=== PATIENT | female | born 1970 | race Caucasian/White ===

== ENCOUNTER → 2020-05-27 | Emergency (ER) | payer OTHER ==
[~2020-05-27] MED LIST: Ketorolac Tromethamine 30 MG/ML VIAL ONE; Nitrofurantoin Monohyd/M-Cryst 100 MG CAP ONE; Phenazopyridine HCl 97.5 MG TABLET ONE
[2020-05-27 21:07] LABS: Bilirubin Negative (Negative); Blood, Urine Negative (Negative); Clarity Slightly Cloudy (Clear); Glucose, Urine (Dipstick) Negative (Negative); Ketone, Urine Negative (Negative); Leukocyte Small (Negative); Nitrite Negative (Negative); Protein, Urine (Dipstick) Negative (Neg-Trace); Specific Gravity, Urine 1.025 (1.005-1.030)
[2020-05-27 21:14] LABS: Bacteria/HPF 1+ HPF (None Seen); RBC/HPF 0-3 HPF (0-3); Squamous Epithelial 0-3 HPF (0-3); Trichomonas/HPF 1+ HPF (None Seen); Yeast-Budding Rare HPF (None Seen); Yeast-Hyphae 1+ HPF (None Seen)
--- NOTE | 2020-05-28 09:27 | CT ---
CT ABDOMEN AND PELVIS WITHOUT CONTRAST: 05/27/[address] of the abdomen and pelvis was done without oral or IV contrast in this patient with right f lank pain. The lung bases are clear. The liver, spleen, pancreas, adrenal glands, gallbladder, kidneys, and abd ominal aorta showed no acute findings within the limitations of a noncontrast study. There is a tiny nonobstructing left renal calculus, but no calculi were appreciated in the ureters or the urinary jaspreet dder. The aorta shows no dilation. The bowel is unremarkable in appearance. No free air or free fluid was seen. CT of the pelvis shows s everal pelvic calcifications that appear to be phleboliths. None appear to be within the ureter. Ther e are no adnexal masses, free fluid, or inflammatory changes. IMPRESSION: Tiny nonobstructing calculus in the left kidney. No findings on the right side to explain right sided pain. Preliminary report discussed with Dr. Santana at 1063 on 05/27/20. POS: HOME
== END ==
LOC: BURERS 20:34
DX: N20.0 Calculus of kidney (principal); N39.0 Urinary tract infection, site not specified; M19.90 Unspecified osteoarthritis, unspecified site; M06.9 Rheumatoid arthritis, unspecified; E66.9 Obesity, unspecified; F32.9 Major depressive disorder, single episode, unspecified; F17.200 Nicotine dependence, unspecified, uncomplicated; M79.7 Fibromyalgia; Z79.899 Other long term (current) drug therapy
CPT/HCPCS: 74176; 81003; 81015; 87086; 96372; J1885

== ENCOUNTER 2020-07-01 11:55 | Emergency (ER) | payer BC, OTHER ==
[~2020-07-01 11:55] MED LIST changes: +Iopamidol 370 76% 100 ML VIAL ONE; -Ketorolac Tromethamine 30 MG/ML VIAL ONE; -Nitrofurantoin Monohyd/M-Cryst 100 MG CAP ONE; -Phenazopyridine HCl 97.5 MG TABLET ONE
[2020-07-01 12:11] LABS: #Basophils 0.1 thou/uL (0.0-0.2); #Eosinphils 0.3 thou/uL (0.0-0.7); #Lymphocytes 1.4 thou/uL (1.20-3.40); #Monocytes 0.3 thou/uL (0.11-0.59); #Neutrophils 3.2 thou/uL (1.40-6.50); %Basophils 1.2 % (0.0-1.0); %Lymphocytes 27.3 % (21.0-51.0); %Neutrophils 59.6 % (42.0-75.0); Hemoglobin 11.8 g/dL (12.0-16.0); Mean Corpuscular HGB CONC 30.9 g/dL (32.0-36.0); Mean Corpuscular Hemoglobin 28.6 pg (27.0-31.0); Mean Corpuscular Volume 92.6 fL (78.0-98.0); Mean Platelet Volume 8.8 fL (7.4-10.4); Platelet Count 238 thou/uL (130-400); RBC Distribution Width 12.6 % (11.5-14.5); Red Blood Cell (RBC) Count 4.12 mill/uL (4.20-5.40); White Blood Cell (WBC) Count 5.3 thou/uL (4.8-10.8)
[2020-07-01 12:17] LABS: INR-International Normal Ratio 0.9; PTT 31.5 sec (22.9-36.1); Prothrombin Time 12.6 sec (12.0-14.7)
[2020-07-01 12:23] LABS: BHCG - Serum Negative (NEGATIVE); Pregs Control Background? CLEAR/WHITE (CLR/WHITE); Pregs Control Bar Appear? YES (CONTROL BAR)
[2020-07-01 12:26] LABS: ALT (SGPT) 32 U/L (8-55); AST (SGOT) 20 U/L (5-34); Albumin 4.3 g/dL (3.5-5.0); Alcohol Less than 10 mg/dL (Less than 10); Alkaline Phosphatase 117 U/L (40-110); Anion Gap 14 mmol/L (10-20); BUN (Urea Nitrogen) 12 mg/dL (7.0-18.7); Bilirubin, Total 0.3 mg/dL (0.2-1.2); Calc. Creatinine Clearance 0 mL/min (70-130); Carbon Dioxide 26 mmol/L (22-29); Chloride 105 mmol/L (98-107); Estimated GFR-MDRD Greater than 90; Globulin 2.5 g/dL (2.4-3.5); Glucose 100 mg/dL (70-105); Lipase 15 U/L (8-78); Potassium 4.1 mmol/L (3.5-5.1); Protein, Total 6.8 g/dL (6.0-8.3); Sodium 141 mmol/L (136-145)
[2020-07-01 13:02] LABS: Bilirubin Negative (Negative); Blood, Urine Negative (Negative); Clarity Clear (Clear); Glucose, Urine (Dipstick) Negative (Negative); Ketone, Urine Negative (Negative); Leukocyte Small (Negative); Nitrite Negative (Negative); Protein, Urine (Dipstick) Negative (Neg-Trace); Specific Gravity, Urine 1.015 (1.005-1.030); Urobilinogen 0.2 mg/dL (Less than 2); pH, Urine 8.5 (5.0-9.0)
[2020-07-01 13:05] LABS: Bacteria/HPF Rare-Few HPF (None Seen); RBC/HPF 0-3 HPF (0-3); Squamous Epithelial 0-3 HPF (0-3); Trichomonas/HPF Rare HPF (None Seen)
--- NOTE | 2020-07-01 14:59 | CT ---
CT CHEST AND ABDOMEN AND PELVIS WITH CONTRAST: DATE: 07/01/2020. FINDINGS: Spiral CT of the chest, abdomen, and pelvis was done following trauma. CT of the thorax shows a normal-appearing mediastinum with no sign of hematoma or other traumatic markel nge. The aorta appears intact. There is no sign of mass or adenopathy. The lungs are clear, except for some dependent atelectasis posteriorly. There is no sign of parenchymal contusion, pleural effu bekah, or pneumothorax. The thoracic spine, sternum, and ribs all appeared intact. CT of the abdomen and pelvis showed a normal-appearing liver, spleen, pancreas, adrenal glands, kidne ys, and abdominal aorta. There was no evidence of laceration or contusion to any major organ. The g allbladder is rather large, being 10 cm in length, but it otherwise appears normal. There is no distention of bowel. No free air or free fluid was seen. CT of the pelvis shows o fluid collections, hematoma, or mass. There are no inflammatory changes. T he bony pelvis appears intact as does the lumbar spine. IMPRESSION: No acute traumatic findings. Preliminary report called to Dr. Duncan at 1237 on 07/01/2020. CODE CR POS: HOME
--- NOTE | 2020-07-01 15:06 | CT ---
CT OF THE CERVICAL SPINE: DATE: 07/01/2020. FINDINGS: Spiral CT of the cervical spine was done following trauma. No fracture, dislocation, or disk space n arrowing was seen. The C1 to dens distance is normal and the soft tissues are normal in thickness. There is no central canal or foraminal stenosis of concern. There is loss of the normal cervical germán dosis which could be due to muscle spasm. IMPRESSION: Other than straightening of the cervical spine, no acute findings. Preliminary report called to Dr. Duncan at 1237 on 07/01/2020. CODE CR POS: HOME
--- NOTE | 2020-07-01 15:42 | CT ---
CT OF THE BRAIN WITHOUT CONTRAST 06/04/20 A noncontrast study shows normal sized ventricles with no shift. No intracranial bleeding, mass or s troke was found. The skull appears intact. The visible paranasal sinuses are clear. IMPRESSION: No acute intracranial findings. Preliminary report called to Dr. Duncan at 1237 on 07/01/20. POS: HOME
== END 2020-07-01 13:10 | disposition home or self-care (01) ==
LOC: BURERS 11:55
DX: S16.1XXA Strain of muscle, fascia and tendon at neck level, initial encounter (principal); S39.012A Strain of muscle, fascia and tendon of lower back, initial encounter; S50.812A Abrasion of left forearm, initial encounter; R10.811 Right upper quadrant abdominal tenderness; R10.812 Left upper quadrant abdominal tenderness; M06.9 Rheumatoid arthritis, unspecified; E66.9 Obesity, unspecified; F32.9 Major depressive disorder, single episode, unspecified; F17.200 Nicotine dependence, unspecified, uncomplicated; Z79.01 Long term (current) use of anticoagulants; Z79.899 Other long term (current) drug therapy; Z79.1 Long term (current) use of non-steroidal anti-inflammatories (NSAID)
CPT/HCPCS: 36415; 70450; 71260; 72125; 74177; 80053; 80307; 81003; 81015; 83690; 84703; 85025; 85610; 85730; 94760; G0390; Q9967

== ENCOUNTER 2021-02-13 10:01 | Emergency (ER) | payer BC, OTHER ==
[2021-02-13] MEDS ORDERED: Aspirin Chewable 81 MG TAB ONE (10:19)
[2021-02-13 11:05] LABS: ALT (SGPT) 18 U/L (8-55); AST (SGOT) 17 U/L (5-34); Albumin 4.2 g/dL (3.5-5.0); Alkaline Phosphatase 101 U/L (40-110); Anion Gap 14 mmol/L (10-20); BUN (Urea Nitrogen) 14 mg/dL (9.8-20.1); Bilirubin, Total 0.4 mg/dL (0.2-1.2); CK (CPK) 94 U/L (29-168); Calc. Creatinine Clearance 0 mL/min (70-130); Calcium 8.9 mg/dL (7.8-10.44); Carbon Dioxide 23 mmol/L (22-29); Chloride 107 mmol/L (98-107); Globulin 2.5 g/dL (2.4-3.5); Glucose 105 mg/dL (70-105); Lipase 9 U/L (8-78); Protein, Total 6.7 g/dL (6.0-8.3); Sodium 140 mmol/L (136-145)
[2021-02-13 11:08] LABS: Mean Corpuscular HGB CONC 32.9 g/dL (32.0-36.0); Mean Corpuscular Hemoglobin 29.2 pg (27.0-31.0); Mean Corpuscular Volume 88.9 fL (78.0-98.0); Mean Platelet Volume 8.5 fL (7.4-10.4); Platelet Count 235 thou/uL (130-400); RBC Distribution Width 13.3 % (11.5-14.5)
[2021-02-13 11:24] LABS: Band 2 % (5-11); Eosinophils 5 % (0-10); Lymphocytes 33 % (21-51); MDiff Complete? YES; Monocytes 6 % (0-10); Neutrophil 54 % (42-75)
== END 2021-02-13 14:11 | disposition home or self-care (01) ==
LOC: BURERS 10:01
DX: R07.89 Other chest pain (principal); M79.7 Fibromyalgia; M19.90 Unspecified osteoarthritis, unspecified site; M06.9 Rheumatoid arthritis, unspecified; E66.9 Obesity, unspecified; F17.200 Nicotine dependence, unspecified, uncomplicated
CPT/HCPCS: 36415; 71045; 80053; 82550; 83690; 84484; 85025; 85379; 93005; 94760

== ENCOUNTER 2021-02-26 08:55 | Emergency (ER) | payer OTHER | END 2021-02-26 09:40 | disposition home or self-care (01) | LOC: BURERS 08:55 | DX: J32.9 Chronic sinusitis, unspecified (principal) | CPT/HCPCS: 99283 ==

== ENCOUNTER 2021-05-06 09:14 | Emergency (ER) | payer OTHER ==
[2021-05-06] MEDS ORDERED: Azithromycin 250 MG TAB ONE (10:32)
== END 2021-05-06 10:35 | disposition home or self-care (01) ==
LOC: BURERS 09:14
DX: J06.9 Acute upper respiratory infection, unspecified (principal); H66.91 Otitis media, unspecified, right ear; M79.7 Fibromyalgia; M06.9 Rheumatoid arthritis, unspecified
CPT/HCPCS: 99283

== ENCOUNTER 2021-05-13 10:16 | Emergency (ER) | payer OTHER ==
[2021-05-13] MEDS ORDERED: HYDROcodone/Acetaminophen 5/325 mg Tablet ONE (12:52)
[2021-05-13 23:57] LABS: SARS-CoV-2 PCR by NAA Not Detected (NotDetected)
== END 2021-05-13 12:56 | disposition home or self-care (01) ==
LOC: BURERS 10:16
DX: B34.9 Viral infection, unspecified (principal); Z20.822 Contact with and (suspected) exposure to COVID-19; M06.9 Rheumatoid arthritis, unspecified
CPT/HCPCS: 71046; 87804; 99284; U0003; U0005

== ENCOUNTER 2022-05-18 16:10 | Outpatient (CLI) | payer OTHER | END 2022-05-18 16:11 | disposition home or self-care (01) | LOC: BURLAB 16:10 | PROVIDERS: ATTEND Internal Medicine Gastroenterology | DX: K62.5 Hemorrhage of anus and rectum (principal); Z20.822 Contact with and (suspected) exposure to COVID-19 | CPT/HCPCS: U0003; U0005 ==

== ENCOUNTER 2022-07-05 10:57 | Outpatient (CLI) | payer OTHER | END 2022-07-05 10:58 | disposition home or self-care (01) | LOC: BURRAD 10:57 | PROVIDERS: ATTEND Physician Assistant | DX: M25.532 Pain in left wrist (principal) ==